=== PATIENT | female | born 1990 | race Caucasian/White ===

== ENCOUNTER 2022-03-22 08:38 | Outpatient (RCR) | payer BC, SELFPAY ==
[2022-03-20 10:44] LABS: Estradiol 92.6 pg/mL
[2022-03-22 11:35] LABS: Estradiol 293.6 pg/mL
== END 2022-04-06 23:59 | disposition home or self-care (01) ==
LOC: LAB 08:38
PROVIDERS: PCP Nurse Practitioner Family; Visit Provider Obstetrics & Gynecology Reproductive Endocrinology
DX: Z31.83 Encounter for assisted reproductive fertility procedure cycle (principal)
CPT/HCPCS: 36415; 82670

== ENCOUNTER 2022-04-14 08:40 | Outpatient (CLI) | payer BC, SELFPAY | END 2022-04-14 08:41 | disposition home or self-care (01) | PROVIDERS: PCP Nurse Practitioner Family; Visit Provider Obstetrics & Gynecology Reproductive Endocrinology | DX: Z32.00 Encounter for pregnancy test, result unknown (principal) | CPT/HCPCS: 84702 ==

== ENCOUNTER 2022-04-20 08:04 | Outpatient (CLI) | payer BC, SELFPAY | END 2022-04-20 08:05 | disposition home or self-care (01) | PROVIDERS: PCP Nurse Practitioner Family; Visit Provider Obstetrics & Gynecology Reproductive Endocrinology | DX: Z01.83 Encounter for blood typing (principal); Z32.00 Encounter for pregnancy test, result unknown | CPT/HCPCS: 36415; 84702; 86850; 86900 ==

== ENCOUNTER 2023-01-22 08:19 | Outpatient (CLI) | payer BC, SELFPAY | END 2023-01-22 08:20 | disposition home or self-care (01) | LOC: LAB 08:24 | PROVIDERS: PCP Nurse Practitioner Family; Visit Provider Obstetrics & Gynecology Reproductive Endocrinology | DX: Z32.01 Encounter for pregnancy test, result positive (principal) | CPT/HCPCS: 36415; 84702 ==